=== PATIENT | female | born 1965 | race Hispanic/Latino ===

== ENCOUNTER → 2018-05-18 | Day surgery (SDC) | payer BC ==
[~2018-05-18] MED LIST: ASPIR 8181 MG PO; ATORVASTATIN CA20 MG PO; FENTANYL CITRATE/PF 100MCG/2 ML INJ ONE; HYOSCYAMINE SULFATE 0.5 MG/ML INJ ONE; LEVOTHYROXINE50 MCG PO; LIDOCAINE HCL 2% LOCAL INJ 5 ML SDV VIAL INJ ONE; LISINOPRIL2.5 MG PO; METOCLOPRAMIDE HCL 10 MG/2ML VIAL ONE; METOPROLOL SUCC50 MG PO; MIDAZOLAM HCL 2 MG/2 ML VIAL ONE; NOVOLOG100 UNITS1 SC; OMEPRAZOLE40 MG PO; PLAVIX75 MG PO; PROPOFOL IV EMULSION 10 MG/ML 50 ML VIAL ONE; TRULANCE PO; ZOLOFT50 MG PO
--- NOTE | 2018-05-18 15:04 | Operative Report ---
DATE OF PROCEDURE: May 18, 2018 REFERRING PHYSICIAN: Dr. Radha Bhardwaj. PROCEDURES PERFORMED 1. Esophagogastroduodenoscopy with esophageal dilatation and biopsies. 2. Colonoscopy with polypectomy. INDICATIONS FOR ESOPHAGOGASTRODUODENOSCOPY: Dysphagia, acid reflux. INDICATIONS FOR COLONOSCOPY: Colorectal cancer screening. MEDICATION: Patient was done under MAC. Please see anesthesiologist's note. PROCEDURE: With patient in left lateral decubitus position, a flexible fiberoptic Olympus gastroscope was introduced into the esophagus under direct visualization without any difficulty. Some erosions were noted in the distal esophagus. Lower esophageal sphincter was incompetent and there was some refluxate noted in the distal esophagus. The scope was then advanced with ease into the stomach traversing a large hiatal hernia measured at approximately 5 cm. The patient is status post gastric sleeve. There was a nodule noted in the mid body of the stomach and that was biopsied. The mucosa overlying the antrum revealed some patchy intense erythema and moderate edema and biopsies were obtained, sent to stain for H. pylori. Pylorus was of normal contour and shape, was intubated with ease and the scope was advanced all the way to the 2nd portion of the duodenum. The scope was then withdrawn slowly and a somewhat scalloped fold was noted in the proximal 2nd portion that was biopsied. Mucosa overlying the duodenal bulb grossly appeared to be within normal limits. The scope was then withdrawn back into the stomach and it was retroflexed and the cardia grossly appeared to be within normal limits. The scope was then straightened out. The stomach was decompressed. The scope was subsequently withdrawn. Patient tolerated the procedure well. Esophagus was then dilated to a size 52-[place] Wilson. IMPRESSION 1. Erosive esophagitis. 2. Esophagus dilated to size 52-[place] Wilson. 3. Incompetent lower esophageal sphincter. 4. Approximately 5-cm hiatal hernia. 5. Status post gastric sleeve. 6. Nodule, mid body of the stomach, biopsied. 7. Gastritis, biopsied. Biopsies sent to stain for Helicobacter pylori. 8. Scalloped fold, proximal 2nd portion, biopsied. PLAN: Follow up histology. Increase omeprazole to 40 mg 1 p.o. a.c. b.i.d.. Patient was then turned around. After adequate lubrication of the anal canal, flexible fiberoptic Olympus colonoscope was inserted into the rectum with ease, advanced all the way to the cecum. A minute polyp was hot biopsied in the cecum. The scope was then withdrawn slowly. Mucosa overlying the ascending, transverse, and descending grossly appeared to be within normal limits. One polyp was snared, 1 polyp was hot biopsied from the sigmoid colon, and 1 polyp was hot biopsied from the rectum. The scope was then retroflexed into the distal rectum and small internal hemorrhoids were noted, none of which was actively bleeding. The scope was then straightened out and was subsequently withdrawn. Patient tolerated the procedure well. IMPRESSION 1. Cecal polyp, hot biopsied. 2. Sigmoid colon polyps x2, one snared and 1 hot biopsied. 3. Rectal polyp, hot biopsied. 4. Internal hemorrhoids, none actively bleeding. PLAN: Follow up histology. Initiate high-fiber, low-fat diet. Initiate high-fiber supplement. Start VSL#3 one p.o. daily. Patient might benefit from a followup colonoscopy in 3 years. Job#: [id number] SAMANTA cc:DR. RADHA BHARDWAJ
== END | disposition home or self-care (01) ==
LOC: OR 08:57 → EDSEX 11:30
PROVIDERS: ATTEND Internal Medicine Gastroenterology
DX: Z12.11 Encounter for screening for malignant neoplasm of colon (principal); D12.0 Benign neoplasm of cecum; D12.5 Benign neoplasm of sigmoid colon; K21.9 Gastro-esophageal reflux disease without esophagitis; Z88.0 Allergy status to penicillin; E11.9 Type 2 diabetes mellitus without complications; I10 Essential (primary) hypertension; K59.09 Other constipation; E78.00 Pure hypercholesterolemia, unspecified; D64.9 Anemia, unspecified; Z95.1 Presence of aortocoronary bypass graft; Z98.84 Bariatric surgery status; G47.33 Obstructive sleep apnea (adult) (pediatric); I25.10 Atherosclerotic heart disease of native coronary artery without angina pectoris; Z79.4 Long term (current) use of insulin; K22.10 Ulcer of esophagus without bleeding; K29.70 Gastritis, unspecified, without bleeding; K22.0 Achalasia of cardia; K63.5 Polyp of colon; K62.1 Rectal polyp; K64.8 Other hemorrhoids
CPT/HCPCS: 43239; 43249; 45384; 45385; J1980; J2001; J2250; J2765; 43450; 45378

== ENCOUNTER → 2018-07-26 | Outpatient (CLI) | payer BC ==
[~2018-07-26] MED LIST changes: -FENTANYL CITRATE/PF 100MCG/2 ML INJ ONE; -HYOSCYAMINE SULFATE 0.5 MG/ML INJ ONE; -LIDOCAINE HCL 2% LOCAL INJ 5 ML SDV VIAL INJ ONE; -METOCLOPRAMIDE HCL 10 MG/2ML VIAL ONE; -MIDAZOLAM HCL 2 MG/2 ML VIAL ONE; -PROPOFOL IV EMULSION 10 MG/ML 50 ML VIAL ONE
--- NOTE | 2018-07-29 08:55 | Diagnostic Imaging Report ---
EXAM: Modified barium swallow with Speech Pathologist INDICATION: ^[id number] ^[id number] ^DYSPHAGIA COMPARISON: None available. RADIATION DOSE: Fluoroscopy Time: 0.6 min Air Kerma (AK) value has been reviewed (7.6 mGy). It is below the limits set by the Radiation Protocol Committee (RPC) committee. FINDINGS: See impression IMPRESSION: No evidence of penetration or aspiration. Please see speech pathology report for detailed description and recommendations. Signed by: Dr. Rosalio Miller M.D. on 07/29/2018 8:51 AM
== END ==
LOC: MERGE 07-18 17:24 → DX 12:39
PROVIDERS: ATTEND Internal Medicine Gastroenterology
DX: R13.14 Dysphagia, pharyngoesophageal phase (principal)
CPT/HCPCS: 74230

== ENCOUNTER → 2020-07-06 | Outpatient (CLI) | payer OTHER ==
[~2020-07-06] MED LIST changes: +COVID-19 VACC, MRNA(MODERNA)/PF 100 MCG/0.5 ML VIAL IM ONE
== END ==
LOC: VACCPMC 06:30
DX: Z23 Encounter for immunization (principal); Z20.828 Contact with and (suspected) exposure to other viral communicable diseases

== ENCOUNTER → 2020-08-13 | Outpatient (CLI) | payer OTHER | END | DRG 951 | LOC: VACCPMC 10:11 | DX: Z23 Encounter for immunization (principal); Z20.822 Contact with and (suspected) exposure to COVID-19 | CPT/HCPCS: 0012A; 91301 ==